=== PATIENT | female | born 1940 | race Caucasian/White ===

== ENCOUNTER → 2017-01-05 | Outpatient (CLI) | payer OTHER ==
[~2017-01-05] MED LIST: ACETAMINOPHEN500 M6 PO; ADVAIR 250-501 EAC1 IH; ADVAIR 250-501 EAC1 INH; ADVAIR 250-501 EACH INH; ADVAIR 2501 DISK W/D PO; ADVAIR DISKU1 250/50 INH; ALENDRONATE SOD70 M1 PO; ALLEGRA; ALLEGRA PO; ALLEGRA180 MG; ALLEGRA180 MG PO; ALLERGY MULTI-1 EACH PO; ALPHAGAN P5 ML OD; ALPHAGAN P5 ML OP; ALPHAGAN P5 ML OS; ALPHAGAN P5 ML OU; AMLODIPINE BESYL5 MG PO; APRESOLINE PO; ASPIRIN81 M1 PO; AZOR 5/40 MG TA1 TAB PO; CAPOZIDE PO; CARAFATE PO; CARDIZEM CD PO; CEFDINIR300 MG PO; CEFTIN PO; CEPHALEXIN500 M1 PO; CIPRO PO; CIPRO250 MG PO; CLEOCIN PO; FEOSOL PO; FERGON240 ( 27 ) PO; FERROUS GL PO; FERROUS GLUCON324 M2 PO; FLAGYL PO; FLORASTOR250 M1 PO; IRON1 TAB PO; K-DUR20 ME1 PO; KCL PO; KEFLEX500 MG PO; LASIX20 MG PO; LIDOCAINE VISCOU1 ML EXT; LISINOPRIL PO; LISINOPRIL10 MG PO; LISINOPRIL20 MG PO; LOMOTIL WHITE2.5 M1 PO; LORTAB 5/500 TA1 TA1 PO; METOPROLOL SUCC50 MG PO; MICRO-K; MICRO-K PO; NORVASC; NORVASC PO; OMEPRAZOLE40 M1 PO; PANTOPRAZOLE SO40 MG PO; POTASSIUM CHLO10 ME1 PO; POTASSIUM CHLO10 MEQ PO; POTASSIUM CL 225 ME1 PO; PREDNISONE; PREDNISONE5 M1 PO; PRILOSEC PO; PRINIVIL10 MG PO; PRINIVIL20 M1 PO; PROTONIX PO; SIMVASTATIN40 MG PO; SINGULAIR; SKELAXIN PO; TOPROL XL; TOPROL XL 50 MG50 MG PO; TOPROL XL PO; TOPROL XL100 MG PO; TOPROL XL200 MG PO; TOPROL XL50 MG PO; VISINE TEARS DR15 ML OP; VITAMIN C PO; VITAMIN C500 M6 PO; VITAMIN D250000 UNIT PO; VITAMIN D50000 UNIT PO; WELCHOL625 MG PO; ZOCOR; ZOCOR PO; ZOFRAN PO
--- NOTE | ~2017-01-05 | MY11 ---
[facility] A Service of [facility] RADIOLOGY TEXT RESULTS PATIENT: MARIO POLK LOCATION: [facility] : 40 UNIT #: [id number] AGE: [address]: Kash Michel MD SEX: F ORDER DR: [id number] [facility] [address] [facility]. [place], [place] [address] [id number] O MR#: [id number] Acc #: [id number] NAME: MARIO POLK : 1940 SEX: F STUDY DATE/TIME: 01/05/2017 12:32 UNIT: [facility] ROOM: STUDY DESCRIPTION: MY Mammogram Screening Dig Kee Attending Physician: Kash Michel M.D. Ordering Physician: Kash Michel M.D. Primary Care Physician: Kash Michel M.D. MEDICAL IMAGING REPORT This report is preliminary unless electronic signature is present EXAM Bilateral digital screening mammogram with CAD 01/05/2017 INDICATIONS 76-year-old female presenting for routine screening. No reported problems. No personal or family history of breast cancer. No surgeries. TECHNIQUE CC and MLO views of the breast were obtained and reviewed with an FDA-approved CAD device. COMPARISON There are no comparison studies. Efforts to obtain prior mammograms have been unsuccessful. This will serve as her new baseline study. FINDINGS Breast parenchyma is composed of scattered fibroglandular densities. The pattern is symmetric. There is no new dominant nodule or mass in either breast. No suspicious cluster of microcalcifications. Benign vascular calcifications are present. IMPRESSION Benign screening mammogram. 1 year followup recommended. Patient's over the age of 40 are entered into a reminder system with target due date for the next mammogram. A result letter will be sent to the patient. BIRADS: 2 Benign findings. Dictated by... Andrey Hodge M.D. [facility] A Service of [facility] RADIOLOGY TEXT RESULTS PATIENT: MARIO POLK LOCATION: [facility] : 40 UNIT #: [id number] AGE: [address]: Kash Michel MD SEX: F ORDER DR: THIS IS AN ELECTRONICALLY VERIFIED REPORT Andrey Hodge M.D. at 01/06/2017 4:51 PM RAO/lisa TD: 01/06/2017 13:20 JOB #: [id number] MEDICAL IMAGING REPORT COPY
== END | disposition home or self-care (01) ==
LOC: CWCC 12:13
DX: Z12.31 Encounter for screening mammogram for malignant neoplasm of breast (principal)
CPT/HCPCS: G0202

== ENCOUNTER 2017-01-16 21:43 | Emergency (ER) | payer OTHER ==
[~2017-01-16 21:43] MED LIST changes: -ADVAIR 250-501 EACH INH; -ALENDRONATE SOD70 M1 PO; -ALLEGRA PO; -ALPHAGAN P5 ML OD; -CARAFATE PO; -FERROUS GLUCON324 M2 PO; -MICRO-K PO; -PREDNISONE; -PRILOSEC PO; -PRINIVIL10 MG PO; -PRINIVIL20 M1 PO; -SINGULAIR; -TOPROL XL 50 MG50 MG PO; -VITAMIN C PO; -VITAMIN C500 M6 PO; -VITAMIN D250000 UNIT PO
[2017-01-25] MEDS ORDERED: LASIX20 MG PO (11:44)
[2017-01-25] MEDS ORDERED: PRILOSEC PO (11:44)
[2017-01-25] MEDS ORDERED: AMLODIPINE BESYL5 MG PO (11:44)
[2017-01-25] MEDS ORDERED: PRINIVIL20 M1 PO (11:45)
[2017-01-25] MEDS ORDERED: IRON1 TAB PO (11:45)
[2017-01-25] MEDS ORDERED: MICRO-K PO (11:46)
[2017-01-25] MEDS ORDERED: ALPHAGAN P5 ML OD (11:46)
[2017-01-25] MEDS ORDERED: ADVAIR 2501 DISK W/D PO (11:46)
[2017-01-25] MEDS ORDERED: VITAMIN D50000 UNIT PO (11:47)
[2017-01-25] MEDS ORDERED: TOPROL XL 50 MG50 MG PO (11:47)
[2017-01-25] MEDS ORDERED: ZOCOR PO (11:47)
[2017-01-25] MEDS ORDERED: ALENDRONATE SOD70 M1 PO (11:48)
[2017-01-25] MEDS ORDERED: VITAMIN C PO (11:48)
[2017-01-25] MEDS ORDERED: CARAFATE PO (11:49)
[2017-03-01] MEDS ORDERED: SINGULAIR (14:29)
[2017-03-01] MEDS ORDERED: PREDNISONE (14:29)
[2017-03-03] MEDS ORDERED: CARAFATE PO (12:01)
[2017-03-03] MEDS ORDERED: LASIX20 MG PO (12:02)
[2017-03-03] MEDS ORDERED: PRILOSEC PO (12:02)
[2017-03-03] MEDS ORDERED: AMLODIPINE BESYL5 MG PO (12:02)
[2017-03-03] MEDS ORDERED: FERROUS GLUCON324 M2 PO (12:03)
[2017-03-03] MEDS ORDERED: ALLEGRA PO (12:03)
[2017-03-03] MEDS ORDERED: PRINIVIL10 MG PO (12:03)
[2017-03-03] MEDS ORDERED: ALPHAGAN P5 ML OU (12:04)
[2017-03-03] MEDS ORDERED: ADVAIR 250-501 EACH INH (12:04)
[2017-03-03] MEDS ORDERED: TOPROL XL PO (12:05)
[2017-03-03] MEDS ORDERED: ZOCOR PO (12:05)
[2017-03-03] MEDS ORDERED: VITAMIN D250000 UNIT PO (12:05)
[2017-03-03] MEDS ORDERED: VITAMIN C500 M6 PO (12:06)
== END 2017-01-16 22:00 | disposition home or self-care (01) ==
LOC: CFTX 21:43
DX: J01.00 Acute maxillary sinusitis, unspecified (principal); N18.9 Chronic kidney disease, unspecified; K21.9 Gastro-esophageal reflux disease without esophagitis; Z90.710 Acquired absence of both cervix and uterus; Z88.0 Allergy status to penicillin; Z88.1 Allergy status to other antibiotic agents; Z88.2 Allergy status to sulfonamides; Z88.8 Allergy status to other drugs, medicaments and biological substances
CPT/HCPCS: 99282

== ENCOUNTER 2017-01-25 12:12 | Emergency (ER) | payer OTHER ==
--- NOTE | ~2017-01-25 | CT113 ---
[facility] A Service of [facility] & [facility] RADIOLOGY TEXT RESULTS PATIENT: MARIO POLK LOCATION: [facility] : 40 UNIT #: [id number] AGE: [address]: Sukhjinder Avitia MD SEX: F ORDER DR: [id number] [address] [address] [id number] E MR#: [id number] Acc #: [id number] NAME: MARIO POLK : 1940 SEX: F STUDY DATE/TIME: 01/25/2017 12:22 UNIT: SED ROOM: STUDY DESCRIPTION: CT Sinuses Wo Contrast Attending Physician: Sukhjinder Avitia M.D. Ordering Physician: Sukhjinder Avitia M.D. Primary Care Physician: Kash Michel M.D. MEDICAL IMAGING REPORT This report is preliminary unless electronic signature is present. EXAM CT sinuses without contrast 01/25/2017 13:17 hours. HISTORY 76-year-old woman with 2-week history of congestion, sinus pressure and cough. The patient was initially evaluated 01/15/2017 at [facility] and given the Zithromax and prednisone without relief. COMPARISON Head CT 01/10/2016. No prior sinus CT. TECHNIQUE Thin cut axial images were obtained through the paranasal sinuses with sagittal and coronal reconstructions. Total exam DLP 234 mGy-cm. This CT exam was performed with one or more of the following radiation dose reduction techniques: automatic exposure control, adjustment of mA and/or kV according to patient size, and iterative reconstruction. FINDINGS The left frontal sinus is larger than the right. The frontal sinuses are clear. The ethmoid air cells demonstrate partial opacification bilaterally. There is a small retention cyst in the posterior inferior left ethmoid sinus. This measures 9 mm. There is an air-fluid level and mucosal thickening in the left maxillary sinus and mild mucosal thickening in the right maxillary sinus along the floor. The sphenoid sinus is clear. There is rightward nasal septal deviation with surgical absence of the inferior turbinates and truncated middle turbinates bilaterally. The maxillary ostia is patent on the right and narrowed on the left. IMPRESSION 1. There is an air-fluid level and mucosal thickening in the left STS. [facility] A Service of [facility] & [facility] RADIOLOGY TEXT RESULTS PATIENT: MARIO POLK LOCATION: [facility] : 40 UNIT #: [id number] AGE: [address]: Sukhjinder Avitia MD SEX: F ORDER DR: maxillary sinus with mild mucosal thickening in the right maxillary sinus. Findings suggest acute sinusitis. 2. There is a minimall callosal thickening. A small retention cyst in the ethmoid sinuses left greater than right. The frontal and sphenoid sinuses are clear. 3. There is rightward nasal septal deviation with surgical absence of the inferior turbinates and truncated bilateral middle turbinates. 4. There is mucosal thickening at the left maxillary ostium narrowing the ostium. There is trace mucosal thickening at the right maxillary ostium. Dictated by... Nancy Anderson M.D. THIS IS AN ELECTRONICALLY VERIFIED REPORT Nancy Anderson M.D. at 01/25/2017 6:54 PM MARGEM/solo TD: 01/25/2017 14:27 JOB #: [id number] MEDICAL IMAGING REPORT Page 1 of 1
--- NOTE | ~2017-01-25 | CR63 ---
[facility] A Service of [facility] & [facility] RADIOLOGY TEXT RESULTS PATIENT: MARIO POLK LOCATION: SED : 40 UNIT #: [id number] AGE: [address]: Sukhjinder Avitia MD SEX: F ORDER DR: [id number] [address] [address] [id number] E MR#: [id number] Acc #: [id number] NAME: MARIO POLK : 1940 SEX: F STUDY DATE/TIME: 01/25/2017 12:21 UNIT: SED ROOM: STUDY DESCRIPTION: CR Chest 2 View Attending Physician: Sukhjinder Avitia M.D. Ordering Physician: Sukhjinder Avitia M.D. Primary Care Physician: Kash Michel M.D. MEDICAL IMAGING REPORT This report is preliminary unless electronic signature is present. EXAM Chest 2 views 01/25/2017 1:11 hours. HISTORY 76-year-old woman complaining of congestion, sinus pressure and cough for 2 weeks. Previously treated after being seen at [facility] 01/15/2017 with Zithromax and prednisone for VRE infection. COMPARISON 07/24/2016. FINDINGS Upright PA and lateral views of the chest demonstrate normal cardiac, mediastinal and hilar contours. There are benign calcified mediastinal nodes with no pathologic adenopathy. The lungs demonstrate a bilateral reticulonodular changes diffusely more confluent in the lower lungs. Patient has had chronic interstitial changes in the lung window images from the lung bases. CT abdomen 11/29/2016 and 07/24/2016 suggesting chronic interstitial lung disease. It is difficult to determine whether an acute processes superimposed, but is not favored. IMPRESSION There are diffuse interstitial changes in both lungs, slightly more confluent than lung bases, with an element of underlying emphysematous change. The patient has had these interstitial changes on the lung window images from CT abdomen and pelvis 07/24/2016 and 11/29/2016, which suggests an element of chronicity and chronic interstitial lung disease. No definite acute superimposed pulmonary densities seen. There is no pleural effusion or pneumothorax. [facility] A Service of [facility] RADIOLOGY TEXT RESULTS PATIENT: MARIO POLK LOCATION: [facility] : 40 UNIT #: [id number] AGE: [address]: Sukhjinder Avitia MD SEX: F ORDER DR: Dictated by... Nancy Anderson M.D. THIS IS AN ELECTRONICALLY VERIFIED REPORT Nancy Anderson M.D. at 01/25/2017 2:27 PM KAMLESH/solo TD: 01/25/2017 14:03 JOB #: [id number] MEDICAL IMAGING REPORT
[~2017-01-25 12:12] MED LIST changes: +ALENDRONATE SOD70 M1 PO; +ALPHAGAN P5 ML OD; +CARAFATE PO; +MICRO-K PO; +PRILOSEC PO; +PRINIVIL20 M1 PO; +TOPROL XL 50 MG50 MG PO; +VITAMIN C PO
[2017-01-25 13:06] LABS: BASOPHIL# 0.1 X10e3 (0-0.3); BASOPHIL% 0.8 % (0-2.5); EOSINOPHIL# 0.2 X10e3 (0-0.7); EOSINOPHIL% 1.1 % (0.0-7.0); HEMATOCRIT 43.7 % (35.0-45.0); HEMOGLOBIN 13.9 gm/dL (12.0-16.0); LYMPHOCYTE# 1.7 X10e3 (1.0-3.5); LYMPHOCYTE% 10.2 % (17.0-45.0); MEAN CELL VOLUME 82.9 FL (83-96); MEAN CORPUSCULAR HEMOGLOBIN 26.4 PG (28-34); MEAN CORPUSCULAR HGB CONC 31.9 g/dL (30-36); MEAN PLATELET VOLUME 7.5 FL (6.5-11.5); MONOCYTE# 1.1 X10e3 (0-1.0); MONOCYTE% 6.5 % (3.0-12.0); NEUTROPHIL# 13.5 X10e3 (1.5-7.1); NEUTROPHIL% 81.4 % (40-75); PLATELET COUNT 391 X10e3 (140-420); RED BLOOD COUNT 5.27 X10e (3.90-5.30); RED CELL DISTRIBUTION WIDTH 15.6 % (11.0-15.5); WHITE BLOOD COUNT 16.6 X10e3 (4.0-10.5)
[2017-01-25 13:12] LABS: DIFF IND NO
[2017-01-25 13:16] LABS: INFLUENZA A NEG (NEG)
[2017-01-25 13:17] LABS: INFLUENZA B NEG (NEG)
[2017-01-25 13:23] LABS: ALBUMIN SERUM 4.1 g/dL (3.5-5.0); ALKALINE PHOSPHATASE 95 U/L (32-92); ALT (SGPT) 14 U/L (10-40); AST (SGOT) 15 U/L (10-42); BILIRUBIN, DIRECT 0.1 mg/dL (0.0-0.2); BILIRUBIN,INDIRECT 0.4 mg/dL (0.0-0.9); BILIRUBIN,TOTAL 0.5 mg/dL (0.2-2.0); BLOOD UREA NITROGEN 12 mg/dL (9-23); CALCIUM SERUM 9.1 mg/dL (8.4-10.2); CARBON DIOXIDE 26 mmol/L (22-31); CHLORIDE 99 mmol/L (100-111); CREATININE SERUM 0.8 mg/dL (0.6-1.4); GLOM FILT RATE Estimated ABOVE60 mL/min (>60); GLUCOSE FASTING 115 mg/dL (70-110); POTASSIUM 3.9 mmol/L (3.5-5.1); PROTEIN TOTAL SERUM 8.4 g/dL (6.0-8.3); SODIUM 132 mmol/L (135-145)
[2017-03-01] MEDS ORDERED: SINGULAIR (14:29)
[2017-03-01] MEDS ORDERED: PREDNISONE (14:29)
[2017-03-03] MEDS ORDERED: CARAFATE PO (12:01)
[2017-03-03] MEDS ORDERED: PRILOSEC PO (12:02)
[2017-03-03] MEDS ORDERED: LASIX20 MG PO (12:02)
[2017-03-03] MEDS ORDERED: AMLODIPINE BESYL5 MG PO (12:02)
[2017-03-03] MEDS ORDERED: ALLEGRA PO (12:03)
[2017-03-03] MEDS ORDERED: PRINIVIL10 MG PO (12:03)
[2017-03-03] MEDS ORDERED: FERROUS GLUCON324 M2 PO (12:03)
[2017-03-03] MEDS ORDERED: ALPHAGAN P5 ML OU (12:04)
[2017-03-03] MEDS ORDERED: ADVAIR 250-501 EACH INH (12:04)
[2017-03-03] MEDS ORDERED: ZOCOR PO (12:05)
[2017-03-03] MEDS ORDERED: VITAMIN D250000 UNIT PO (12:05)
[2017-03-03] MEDS ORDERED: TOPROL XL PO (12:05)
[2017-03-03] MEDS ORDERED: VITAMIN C500 M6 PO (12:06)
== END 2017-01-25 16:02 | disposition home or self-care (01) ==
LOC: SED 12:12
PROVIDERS: Emergency Medicine
DX: J01.00 Acute maxillary sinusitis, unspecified (principal); K21.9 Gastro-esophageal reflux disease without esophagitis; Z90.710 Acquired absence of both cervix and uterus; Z90.49 Acquired absence of other specified parts of digestive tract; Z88.0 Allergy status to penicillin; Z88.2 Allergy status to sulfonamides; Z88.1 Allergy status to other antibiotic agents; Z88.8 Allergy status to other drugs, medicaments and biological substances; Z79.899 Other long term (current) drug therapy
CPT/HCPCS: 36415; 70486; 71020; 80048; 80076; 85025; 86308; 87651; 87804; 99284

== ENCOUNTER 2017-03-01 16:22 | Emergency (ER) | payer OTHER ==
[~2017-03-01 16:22] MED LIST changes: +PREDNISONE; +SINGULAIR
[2017-03-03] MEDS ORDERED: CARAFATE PO (12:01)
[2017-03-03] MEDS ORDERED: PRILOSEC PO (12:02)
[2017-03-03] MEDS ORDERED: LASIX20 MG PO (12:02)
[2017-03-03] MEDS ORDERED: AMLODIPINE BESYL5 MG PO (12:02)
[2017-03-03] MEDS ORDERED: PRINIVIL10 MG PO (12:03)
[2017-03-03] MEDS ORDERED: ALLEGRA PO (12:03)
[2017-03-03] MEDS ORDERED: FERROUS GLUCON324 M2 PO (12:03)
[2017-03-03] MEDS ORDERED: ALPHAGAN P5 ML OU (12:04)
[2017-03-03] MEDS ORDERED: ADVAIR 250-501 EACH INH (12:04)
[2017-03-03] MEDS ORDERED: ZOCOR PO (12:05)
[2017-03-03] MEDS ORDERED: TOPROL XL PO (12:05)
[2017-03-03] MEDS ORDERED: VITAMIN D250000 UNIT PO (12:05)
[2017-03-03] MEDS ORDERED: VITAMIN C500 M6 PO (12:06)
== END 2017-03-01 16:30 | disposition left against medical advice (07) ==
LOC: SED 16:22
DX: Z53.21 Procedure and treatment not carried out due to patient leaving prior to being seen by health care provider (principal)

== ENCOUNTER 2017-03-03 13:01 | Inpatient (IN) | payer OTHER ==
--- NOTE | ~2017-03-03 | CR72 ---
[facility] A Service of [facility] & [facility] RADIOLOGY TEXT RESULTS PATIENT: MARIO POLK LOCATION: [facility] [address] : 40 UNIT #: [id number] AGE: [address]: Kash Michel MD SEX: F ORDER DR: [id number] [facility] [address] [facility]. [place], [place] [address] [id number] E MR#: [id number] Acc #: [id number] NAME: MARIO POLK : 1940 SEX: F STUDY DATE/TIME: 03/03/2017 12:33 UNIT: [facility] ROOM: STUDY DESCRIPTION: CR Chest Single View Portable Attending Physician: Devang Lara M.D. Ordering Physician: Devang Lara M.D. Primary Care Physician: Kash Michel M.D. MEDICAL IMAGING REPORT This report is preliminary unless electronic signature is present EXAM Portable chest 1-view, 03/03/2017 COMPARISON 01/25/2017 HISTORY Short of air with cough and congestion for 1 week. FINDINGS Redemonstrated extensive chronic bilateral interstitial infiltrate, not convincingly significantly changed since the prior study. No dense consolidation, effusion or pneumothorax. Dictated by... Bjorn Fuller M.D. THIS IS AN ELECTRONICALLY VERIFIED REPORT Bjorn Fuller M.D. at 03/04/2017 3:53 PM DEREK/jason TD: 03/03/2017 13:23 JOB #: [id number] MEDICAL IMAGING REPORT Page 1 of 1 COPY
--- NOTE | ~2017-03-03 | OR ---
Unit #: [id number] #: [id number] Patient: MARIO POLK [id number] [address] [address] [id number] I MR#: [id number] NAME: MARIO POLK ROOM: 473 Date of Procedure: 03/04/2017 Admission Date: 03/03/2017 Surgeon: Everette Feldman M.D. : 1940 Attending Physician: Kash Michel M.D. Primary Care Physician: Kash Michel M.D. OPERATIVE REPORT PROCEDURE PERFORMED Esophagogastroduodenoscopy with biopsy. INDICATIONS FOR PROCEDURE The patient with abnormal CT scan showing thickening of the duodenal wall along with right upper quadrant epigastric pain, undergoing evaluation with upper endoscopy. MEDICATIONS Monitored anesthesia. POSTOPERATIVE FINDINGS 1. Duodenal bulb, descending duodenum appears completely normal. This area was viewed with the side-viewing scope also. 2. Gastritis appears chronic, biopsies taken. 3. Hiatal hernia and esophageal ring. No dilation attempted. PLAN We will consider MRI, MRCP for further evaluation of the pancreatic head. DESCRIPTION OF PROCEDURE The patient was explained of the procedure, risks, and benefits along with the risks and benefits of anesthesia. She was brought to the endoscopy room. Propofol anesthesia was given. Bite block was placed. The scope was passed down the mouth and esophagus, stomach, duodenum, and distal duodenum. Findings as described. At this point, I used a side-viewing scope and reviewed the duodenum carefully. No abnormalities were seen in this area. Biopsies were taken in antrum and body. Gently, the scope was pulled out. She tolerated it well. No major complications were seen. Dictated by... Nghia Cardenas/calvin TD: 03/05/2017 00:00 JOB #: [id number] Unit #: [id number] #: [id number] Patient: MARIO POLK OPERATIVE REPORT Page 1 of 1 X Everette Feldman MD PROCEDURE OPERATIVE NOTE
--- NOTE | ~2017-03-03 | CT4 ---
[facility] A Service of [facility] & [facility] RADIOLOGY TEXT RESULTS PATIENT: MARIO POLK LOCATION: [facility] 473-01 : 40 UNIT #: [id number] AGE: [address]: Kash Michel MD SEX: F ORDER DR: [id number] [facility] [address] [facility]. [place], [place] [address] [id number] E MR#: [id number] Acc #: [id number] NAME: MARIO POLK : 1940 SEX: F STUDY DATE/TIME: 03/03/2017 13:24 UNIT: [facility] ROOM: STUDY DESCRIPTION: CT Abd and Pelv Wo Cont Attending Physician: Devang Lara M.D. Ordering Physician: Devang Lara M.D. Primary Care Physician: Kash Michel M.D. MEDICAL IMAGING REPORT This report is preliminary unless electronic signature is present EXAM CT of the abdomen and pelvis without contrast media. HISTORY Chills, right flank pain, and bilateral back pain for 2 days. TECHNIQUE Axial imaging of the abdomen and pelvis was performed without contrast media. This CT exam was performed with one or more of the following radiation dose reduction techniques: automatic exposure control, adjustment of mA and/or kV according to patient size, and iterative reconstruction. FINDINGS Scans through the lung bases show advanced interstitial lung disease. There are multiple somewhat nodular appearing infiltrates which overall appear to be more inflammatory than neoplastic. The largest of these is in the posterior aspect of the right base and is not present previously. Similarly, there is an area of air bronchograms in the posteromedial aspect of the right base which was not present previously. There is coronary atherosclerotic disease. Scans through the liver parenchyma appear normal. Gallbladder is surgically absent. There are edematous changes surrounding the duodenal near the head of the pancreas. The pancreas otherwise has a normal appearance without evidence of significant inflammation. Spleen is of normal size. There are dense vascular calcifications in the splenic hilum. The adrenal glands are not enlarged. There are no stones identified in either kidney. The adrenal glands appear of normal size. There is no hydronephrosis or hydroureter. There are no stones in either ureter. There are vascular calcifications in the broad ligament. The uterus is absent. I do not see any adnexal masses. The appendix in this [facility] A Service of [facility] RADIOLOGY TEXT RESULTS PATIENT: MARIO POLK LOCATION: [facility] 473-01 : 40 UNIT #: [id number] AGE: [address]: Kash Michel MD SEX: F ORDER DR: patient appears normal. There is extensive diverticulosis, particularly in the descending and sigmoid colons. The bladder appears unremarkable. There is grade 1 anterolisthesis of L4 on 5. There is evidence of underlying facet disease. CONCLUSIONS 1. Inflammatory changes around the duodenum, possibly representing duodenitis, possibly related to peptic ulcer disease. This extends to the head and uncinate process of the pancreas, although the pancreas proper does not appear inflamed. Certainly pancreatitis and secondary duodenitis are in the differential. 2. Status post cholecystectomy. 3. No evidence of renal or ureteral calculi. 4. Status post hysterectomy. 5. Diverticulosis, no diverticulitis. 6. Advanced facet disease in the lumbar spine with grade 1 anterolisthesis of L4 on 5. Dictated by... Westley Martinez M.D. THIS IS AN ELECTRONICALLY VERIFIED REPORT Westley Martinez M.D. at 03/05/2017 7:11 AM SALTY/jordan TD: 03/03/2017 15:29 JOB #: [id number] MEDICAL IMAGING REPORT Page 1 of 1 COPY
--- NOTE | ~2017-03-03 | CO ---
Unit #: [id number] #: [id number] Patient: MARIO POLK [id number] [address] [place], [place] [address] [id number] I MR#: [id number] NAME: MARIO POLK ROOM: [facility] Age: 76 Sex: F Admission Date: 03/03/2017 : 1940 Attending Physician: Kash Michel M.D. Primary Care Physician: Kash Michel M.D. Consultation Date: 03/04/2017 CONSULTATION REPORT REASON FOR CONSULTATION Abnormal CT scan. HISTORY OF PRESENTING ILLNESS Ms. Polk is a 76-year-old, female admitted yesterday with complaints of pain, which started in the right back, right upper quadrant area, as well as in the epigastric area. Pain seems to be somewhat better now that she is not eating. She had some low-grade fever and chills, also, at this time. Initial workup included a CT scan, which shows concerning findings and I was consulted. Patient has no (1) dysphagia and no hematemesis. She had a bowel movement yesterday. She has had no blood in the stool. She does have a 20-pound weight loss over the last 6 months or so and has lost appetite also. PAST HISTORY Significant for sarcoidosis, gastritis, gastroesophageal reflux disease, hypertension, and COPD. She is status post cholecystectomy tonsillectomy, and hysterectomy. 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 Never smoked. Never drank. No drug abuse. FAMILY HISTORY Not contributory. ALLERGIES To penicillin, sulfa, quinolones, erythromycin, as well as Lipitor and IV dyes. MEDICATIONS 1. Zocor. 2. Prinivil. 3. Amlodipine. 4. Lasix. 5. Prilosec. 6. Carafate. 7. Advair. PHYSICAL EXAMINATION VITAL SIGNS: Stable. She has been afebrile. GENERAL APPEARANCE: No acute distress. HEENT: Pupils are equal and reactive. NECK: No lymphadenopathy. CHEST: A few scattered rhonchi. Unit #: [id number] #: [id number] Patient: MARIO POLK CARDIOVASCULAR: Regular rate and rhythm. No murmurs. ABDOMEN: Soft, nontender, and nondistended. EXTREMITIES: Without clubbing, cyanosis, or edema. NEUROLOGICAL: Intact. SKIN: Warm and dry. DIAGNOSTIC STUDIES IMAGING: CT scan shows findings of possible inflammation around the duodenum. LABORATORY: White count elevated at 14.8 and hemoglobin 13.4. Chemistries unremarkable. Amylase and lipase normal. Liver function tests were normal. ASSESSMENT AND PLAN 1. Abnormal CT scan with thickening in the duodenum and possible peptic ulcer disease versus duodenitis versus mass. Will need direct visualization with EGD. Further recommendations to follow. 2. History of sarcoidosis. Swelling could also be related to her sarcoidosis in this area. 3. Leukocytosis, currently afebrile. Thank you Dr. Michel for this interesting consult. Will follow along. Dictated by... Nghia Cardenas/katrin TD: 03/04/2017 12:36 JOB #: [id number] CONSULTATION REPORT Page 1 of 1 X Everette Feldman MD X CONSULTATION REPORT
--- NOTE | ~2017-03-03 | DS ---
Unit #: [id number] #: [id number] Patient: MARIO POLK [id number] [address] [place], [place] [address] [id number] I MR#: [id number] NAME: MARIO POLK ROOM: 473 Age: 76 Sex: F Admission Date: 03/03/2017 : 1940 Discharge Date: 03/05/2017 Attending Physician: Kash Michel M.D. Primary Care Physician: Kash Michel M.D. DISCHARGE SUMMARY PRINCIPAL DISCHARGE DIAGNOSES 1. Right flank pain. 2. Gastritis. 3. Hiatal hernia with esophageal ring. 4. Leukocytosis. 5. Hypokalemia. 6. Hypertension. 7. Chronic obstructive pulmonary disease. 8. Hypothyroidism. 9. Sarcoidosis. 10. Recurrent urinary tract infections. 11. Status post cholecystectomy. 12. Status post hysterectomy. 13. Status post tonsillectomy. PROCEDURE EGD with biopsy on March 04, 2017. MARKETING INSTRUCTOR Dr. Feldman from GI services. REASON FOR HOSPITALIZATION The patient is a 76-year-old white female with a history of hypertension, COPD, hypothyroidism, sarcoidosis, GE reflux disease, hyperlipidemia who presented to the emergency room with chills, subjective fever, right flank pain. Found to have a low-grade temperature of 99.7, slightly tachycardic, white count elevated at 14.8. Workup was otherwise essentially negative, except for a CT scan of the abdomen and pelvis showing inflammation around the duodenum. Amylase and lipase were normal. Chest x-ray showed no active disease. Hemoglobin and platelets were normal. Coags normal. Cardiac enzymes normal. Lactic acid normal. Urinalysis: One plus blood, trace leukocytes. CMP normal except for potassium of 3.4 and random blood sugar of 133 with a total protein of 8.4. Magnesium normal. Influenza A and B negative. EKG: Sinus tachycardia, fusion complex, incomplete right bundle branch block and the patient was admitted. HOSPITAL COURSE She was made NPO. Placed on SCDs for DVT prophylaxis, IV fluids, IV proton pump inhibitors. GI was consulted. Blood cultures were apparently sent in the emergency room and no growth at 24 hours. EGD was performed on the showing a completely normal duodenum. There was gastritis which appeared chronic. Biopsies were taken. There was a hiatal hernia with esophageal ring which was not dilated. CEA was normal. MRCP showed Unit #: [id number] #: [id number] Patient: MARIO POLK mild intra and extrahepatic biliary ductal dilatation. No filling defects. Prior cholecystectomy. No pancreatic ductal dilatation. No pancreatic mass. There was some parenchymal scarring in the mid left kidney. The patient's potassium was replaced. Diet was advanced. Dr. Feldman also ordered a CEA-125 and a CA19-9 which have not been reported yet. She is currently tolerating a regular diet and will be discharged home on a healthy heart diet and her current meds. MEDICATIONS 1. Advair 250/50 one puff q.12. 2. Nirali 180 mg daily. 3. Amlodipine 5 mg daily. 4. Toprol XL 50 mg daily. 5. Lasix 20 mg daily. 6. Zocor 40 mg daily. 7. Prinivil will be on hold because of possible angioedema of the duodenum as the culprit. 8. She is also on ferrous gluconate one daily. 9. Alphagan P eye drops both eyes b.i.d. 10. Carafate 1 g b.i.d. 11. Prilosec 40 mg daily. 12. Vitamin C 500 mg daily. 13. Vitamin D2 at 50,000 units weekly. FOLLOWUP 1. She will see me in one week. 2. She will see Dr. Feldman in six weeks. Dictated by... Kash Michel M.D. MARITA/casey TD: 03/08/2017 09:22 JOB #: [id number] DISCHARGE SUMMARY Page 1 of 1 X Kash Michel MD X DISCHARGE SUMMARY
--- NOTE | ~2017-03-03 | EKG ---
PATIENT: MARIO POLK UNIT #: [id number] Ventricular Rate: 122 BPM Atrial Rate: 122 BPM P-R Interval: 130 ms QRS Duration: 108 ms Q-T Interval: 332 ms QTC Calculation(Bezet): 473 ms P Mulberry: 62 degrees Calculated R Mulberry: 58 degrees Calculated T Mulberry: 28 degrees Diagnosis Line: Sinus tachycardia with Fusion complexes Diagnosis Line: Incomplete right bundle branch block Diagnosis Line: Nonspecific ST abnormality Diagnosis Line: Abnormal ECG Diagnosis Line: When compared with ECG of 09-DEC-2016 13:28, Diagnosis Line: Fusion complexes are now Present Diagnosis Line: Incomplete right bundle branch block is now Diagnosis Line: Present Diagnosis Line: ST now depressed in Anterior leads Diagnosis Line: Confirmed by AUGUSTO RAMSEY MD ([id number]) on 03/03/2017 Diagnosis Line: 10:45:09 PM INTERPRETING MD: ROXY NEGRON
--- NOTE | ~2017-03-03 | HP ---
Unit #: [id number] #: [id number] Patient: MARIO POLK [id number] [address] [place], [place] [address] [id number] I MR#: [id number] NAME: MARIO POLK ROOM: 473 Age: 76 Sex: F Admission Date: 03/03/2017 : 1940 Attending Physician: Kash Michel M.D. Primary Care Physician: Kash Michel M.D. HISTORY AND PHYSICAL HISTORY OF PRESENT ILLNESS The patient is a 76-year-old white female with a history of hypertension, chronic obstructive pulmonary disease, hypothyroidism, sarcoid, gastroesophageal reflux disease and hyperlipidemia. The patient presented to the emergency room with chills and right flank pain. She had a low-grade temperature of 99.7. She was slightly tachycardic. White count was elevated at 14.8. Workup was essentially negative except for the CT scan showing inflammation around the duodenum. Amylase and lipase were normal. The patient was felt to be needing to be admitted by the emergency room physician because of duodenitis and sinus tachycardia. The sinus tachycardia has resolved spontaneously after giving her Toprol and some IV fluids. She currently has no complaints whatsoever. Hopefully she will have an EGD today. PAST MEDICAL HISTORY 1. Sarcoidosis. 2. Gastritis. 3. Hiatal hernia. 4. Gastroesophageal reflux disease. 5. Recurrent urinary tract infections. 6. Hyperlipidemia. 7. Hypertension. 8. Chronic obstructive pulmonary disease. PAST SURGICAL HISTORY 1. Cholecystectomy. 2. Hysterectomy. 3. Tonsillectomy. SOCIAL HISTORY Prior smoker. Nondrinker. No street drug use. FAMILY HISTORY Noncontributory. ALLERGIES She has stated allergy to penicillin, sulfa drugs, quinolones, erythromycin, Lipitor and IV dye. PREADMISSION MEDICATIONS 1. Nirali 180 mg daily. 2. Ferrous gluconate 324 mg daily. 3. Alphagan P 1 drop o.u. b.i.d. 4. Advair 250/50 one puff q.12 h. Unit #: [id number] #: [id number] Patient: MARIO POLK 5. Toprol XL 50 mg daily. 6. Carafate 1 g b.i.d. 7. Prilosec 40 mg daily. 8. Lasix 20 mg daily. 9. Amlodipine 5 mg daily. 10. Prinivil 10 mg daily. 11. Zocor 40 mg daily. 12. Vitamin D2 50,000 units weekly. 13. Vitamin C 500 mg daily. PHYSICAL EXAMINATION GENERAL: Awake, alert and oriented times three, in no acute distress. VITALS: Afebrile, currently temperature 98.3, pulse 93, respiratory rate 20, blood pressure 131/64, O2 saturations not repeated, but was 99% in the emergency room on room air. HEENT: Unremarkable. NECK: Supple without jugular venous distension, bruits, adenopathy or thyromegaly. CHEST: Clear to auscultation. HEART: Regular rate and rhythm without murmurs, rubs or gallops. ABDOMEN: Soft, nondistended, nontender with positive bowel sounds and no hepatosplenomegaly. EXTREMITIES: No clubbing, cyanosis or edema. /RECTAL: Deferred. NEUROLOGIC: Grossly intact. DIAGNOSTIC STUDIES IMAGING: Chest x-ray single view no active disease. CT abdomen and pelvis inflammatory changes around the duodenum. Status post cholecystectomy. Status post hysterectomy. Diverticulosis. Lumbar spinal facet arthropathy. LABORATORY: White blood cell count 14.8 with a left shift, hemoglobin and platelets normal. PT/PTT normal. Cardiac enzymes normal. Lactic acid normal times two sets. Urinalysis trace leukocytes, 1+ blood. CMP normal except for potassium of 3.4, random blood sugar 133, total protein 8.4. Amylase, lipase and magnesium normal. Influenza A and B swabs were negative. CARDIOVASCULAR: EKG sinus tachycardia, fusion complexes, incomplete right bundle branch block, nonspecific ST abnormality. ASSESSMENT 1. Duodenitis. 2. Leukocytosis. 3. Hypokalemia. 4. Hypertension. 5. Chronic obstructive pulmonary disease. 6. Hypothyroidism. 7. Sarcoidosis. 8. Gastroesophageal reflux disease. 9. Recurrent urinary tract infections. 10. Status post cholecystectomy. 11. Status post hysterectomy. 12. Status post tonsillectomy. PLAN Unit #: [id number] #: [id number] Patient: MARIO POLK PATREENA N.p.o. IV proton pump inhibitor. EGD. SCDs for DVT prophylaxis. Further evaluation pending results of the above. Dictated by Kash Michel M.D. WRK/gz TD: 03/04/2017 07:38 JOB #: [id number] HISTORY AND PHYSICAL Page 1 of 1 X Kash Michel MD HISTORY AND PHYSICAL
--- NOTE | ~2017-03-03 | MR145 ---
[facility] A Service of [facility] RADIOLOGY TEXT RESULTS PATIENT: MARIO POLK LOCATION: [facility] 473-01 : 40 UNIT #: [id number] AGE: [address]: Kash Michel MD SEX: F ORDER DR: [id number] [facility] [address] [facility]. [place], [place] [address] [id number] I MR#: [id number] Acc #: [id number] NAME: MARIO POLK : 1940 SEX: F STUDY DATE/TIME: 03/04/2017 18:45 UNIT: [facility] ROOM: [facility] STUDY DESCRIPTION: MR MRCP WWo Contrast Attending Physician: Kash Michel M.D. Ordering Physician: Everette Feldman M.D. Primary Care Physician: Kash Michel M.D. MRI CENTER REPORT This report is preliminary unless electronic signature is present. EXAM MRI abdomen without and with IV gadolinium and MRCP. HISTORY Fever and chills, and right flank pain and back pain for 2 days. Vomiting. FINDINGS MRI abdomen was performed without and with IV gadolinium and MRCP was performed. The examination is limited by patient's respiratory motion artifact despite repetition of multiple series. Mild intra- and extrahepatic biliary ductal dilatation. No intraductal filling defects are identified. Cholecystectomy. No hepatic mass is identified. Postop changes at the EG junction. Parenchymal scarring in the mid left kidney. No hydronephrosis. No pancreatic abnormalities identified, although, sensitivity is limited by the respiratory motion artifact. No pancreatic ductal dilatation. Probably incidental synovial cyst at the left outlet foramen at T10-11. IMPRESSION 1. Mild intra and extrahepatic biliary ductal dilation. No intraductal filling defects are identified, but sensitivity is limited by respiratory motion artifact degrading multiple series. 2. Cholecystectomy. 3. No pancreatic ductal dilatation. 4. No pancreatic mass is identified, but sensitivity is also limited by motion. 5. Parenchymal scarring in the mid-left kidney. Dictated by... [facility] A Service of [facility] RADIOLOGY TEXT RESULTS PATIENT: MARIO POLK LOCATION: [facility] 473- : 40 UNIT #: [id number] AGE: [address]: Kash Michel MD SEX: F ORDER DR: Alek Wolf M.D. THIS IS AN ELECTRONICALLY VERIFIED REPORT Alek Wolf M.D. at 03/05/2017 11:15 PM KO/jessie TD: 03/04/2017 21:02 JOB #: [id number] MRI CENTER REPORT Page 1 of 1 COPY
[2017-03-03 12:35] LABS: URINE SOURCE CLEAN CATCH
[2017-03-03 12:41] LABS: BASOPHIL# 0.1 X10e3 (0-0.3); BASOPHIL% 0.4 % (0-2.5); EOSINOPHIL# 0.1 X10e3 (0-0.7); EOSINOPHIL% 0.5 % (0.0-7.0); HEMATOCRIT 41.6 % (35.0-45.0); HEMOGLOBIN 13.4 gm/dL (12.0-16.0); LYMPHOCYTE# 1.4 X10e3 (1.0-3.5); LYMPHOCYTE% 9.2 % (17.0-45.0); MEAN CELL VOLUME 82.9 FL (83-96); MEAN CORPUSCULAR HEMOGLOBIN 26.7 PG (28-34); MEAN CORPUSCULAR HGB CONC 32.2 g/dL (30-36); MEAN PLATELET VOLUME 7.3 FL (6.5-11.5); MONOCYTE# 1.2 X10e3 (0-1.0); NEUTROPHIL# 12.1 X10e3 (1.5-7.1); NEUTROPHIL% 81.9 % (40-75); PLATELET COUNT 345 X10e3 (140-420); RED BLOOD COUNT 5.02 X10e (3.90-5.30); RED CELL DISTRIBUTION WIDTH 16.1 % (11.0-15.5); WHITE BLOOD COUNT 14.8 X10e3 (4.0-10.5)
[2017-03-03 12:51] LABS: DIFF IND NO
[2017-03-03 12:52] LABS: URINE BILIRUBIN NEG (NEG); URINE BLOOD 1+ (NEG); URINE COLOR YELLOW; URINE GLUCOSE NEG (NEG); URINE KETONE TRACE (NEG); URINE LEUKOCYTE ESTERASE TRACE (NEG); URINE NITRATE NEG (NEG); URINE PH 5.5 (5-8); URINE PROTEIN NEG (NEG); URINE SPECIFIC GRAVITY 1.013 (1.003-1.035); URINE UROBILINOGEN 0.2 MG/DL (NEG)
[2017-03-03 12:55] LABS: PARTIAL THROMBOPLASTIN TIME 28.2 SECONDS (23.5-31.3); PROTHROMBIN TIME (PATIENT) 10.2 SECONDS (9.6-11.5)
[2017-03-03 12:56] LABS: URBCS1 AUWI 0-2 /[HPF] (0-2); URINE BACTERIA AUWI NEG (NEGATIVE); URINE SQUAMOUS EPITHELIAL CELL NONE SEEN /[HPF]; UWBCS1 AUWI 0-2 (0-5)
[2017-03-03 12:58] LABS: POC - TROPONIN <0.05 ng/mL (<=0.05)
[~2017-03-03 13:01] MED LIST changes: +ADVAIR 250-501 EACH INH; +ALLEGRA PO; +FERROUS GLUCON324 M2 PO; +PRINIVIL10 MG PO; +VITAMIN C500 M6 PO; +VITAMIN D250000 UNIT PO
[2017-03-03 13:06] LABS: CULTURE INDICATED? NO; URINE APPEARANCE CLEAR
[2017-03-03 13:08] LABS: ALBUMIN SERUM 4.2 g/dL (3.5-5.0); BILIRUBIN, DIRECT 0.1 mg/dL (0.0-0.2); BILIRUBIN,INDIRECT 0.4 mg/dL (0.0-0.9); BILIRUBIN,TOTAL 0.5 mg/dL (0.2-2.0); BUN/CREATININE RATIO 21.25; CALCIUM SERUM 9.5 mg/dL (8.4-10.2); CREATININE SERUM 0.8 mg/dL (0.6-1.4); GLOM FILT RATE Estimated 71.7 mL/min (>60); MAGNESIUM 1.9 mg/dL (1.6-3.0); PHOSPHOROUS 2.6 mg/dL (2.5-4.6); POTASSIUM 3.4 mmol/L (3.5-5.1); PROTEIN TOTAL SERUM 8.4 g/dL (6.0-8.3)
[2017-03-03 14:48] LABS: INFLUENZA A NEG (NEG); INFLUENZA B NEG (NEG)
[2017-03-05 03:45] LABS: BASOPHIL# 0.1 X10e3 (0-0.3); BASOPHIL% 0.8 % (0-2.5); EOSINOPHIL# 0.2 X10e3 (0-0.7); EOSINOPHIL% 2.4 % (0.0-7.0); HEMATOCRIT 36.1 % (35.0-45.0); HEMOGLOBIN 11.7 gm/dL (12.0-16.0); LYMPHOCYTE# 1.6 X10e3 (1.0-3.5); LYMPHOCYTE% 17.5 % (17.0-45.0); MEAN CELL VOLUME 83.6 FL (83-96); MEAN CORPUSCULAR HEMOGLOBIN 27.1 PG (28-34); MEAN CORPUSCULAR HGB CONC 32.4 g/dL (30-36); MEAN PLATELET VOLUME 7.9 FL (6.5-11.5); MONOCYTE# 0.7 X10e3 (0-1.0); MONOCYTE% 7.6 % (3.0-12.0); NEUTROPHIL# 6.5 X10e3 (1.5-7.1); NEUTROPHIL% 71.7 % (40-75); PLATELET COUNT 325 X10e3 (140-420); RED BLOOD COUNT 4.32 X10e (3.90-5.30); WHITE BLOOD COUNT 9.1 X10e3 (4.0-10.5)
[2017-03-05 03:47] LABS: DIFF IND NO
[2017-03-05 04:14] LABS: ALBUMIN SERUM 3.1 g/dL (3.5-5.0); BILIRUBIN,TOTAL 0.6 mg/dL (0.2-2.0); BUN/CREATININE RATIO 11.66; CALCIUM SERUM 8.1 mg/dL (8.4-10.2); CREATININE SERUM 0.6 mg/dL (0.6-1.4); GLOM FILT RATE Estimated 88.5 mL/min (>60); POTASSIUM 3.2 mmol/L (3.5-5.1); PROTEIN TOTAL SERUM 6.6 g/dL (6.0-8.3)
[2017-03-08 05:36] LABS: CA 19-9 41 U/mL (<34); CA125 21 U/mL (<35)
== END 2017-03-05 18:52 | disposition home or self-care (01) | DRG 392 ==
LOC: CED 13:01 → CEDOF 15:00 → C4C 19:15
PROVIDERS: Emergency Medicine; Internal Medicine
PROC: 0DB68ZX Excision of Stomach, Via Natural or Artificial Opening Endoscopic, Diagnostic (ICD-10-PCS; principal; 2017-03-04 12:02)
PROC: 0DB78ZX Excision of Stomach, Pylorus, Via Natural or Artificial Opening Endoscopic, Diagnostic (ICD-10-PCS; 2017-03-04 12:02)
DX: K29.50 Unspecified chronic gastritis without bleeding (principal); J44.9 Chronic obstructive pulmonary disease, unspecified; K44.9 Diaphragmatic hernia without obstruction or gangrene; R10.9 Unspecified abdominal pain; E87.6 Hypokalemia; I10 Essential (primary) hypertension; E03.9 Hypothyroidism, unspecified; D86.9 Sarcoidosis, unspecified; Z87.440 Personal history of urinary (tract) infections; Z90.49 Acquired absence of other specified parts of digestive tract; Z90.710 Acquired absence of both cervix and uterus; K21.9 Gastro-esophageal reflux disease without esophagitis; E78.5 Hyperlipidemia, unspecified; Z88.0 Allergy status to penicillin; Z88.2 Allergy status to sulfonamides; Z88.8 Allergy status to other drugs, medicaments and biological substances; Z88.1 Allergy status to other antibiotic agents; Z91.041 Radiographic dye allergy status
CPT/HCPCS: 36415; 71010; 74176; 74183; 80048; 80053; 80076; 81003; 82150; 82378; 82553; 82947; 83605; 83690; 83735; 84100; 84132; 84484; 85025; 85610; 85730; 86301; 86304; 87040; 87804; 88305; 88312; 93005; 96360; 96361; 99285; A9577; C9113; J0696; J2060

== ENCOUNTER 2017-07-12 01:59 | Emergency (ER) | payer OTHER ==
[~2017-07-12] VITALS: Ht 162.6 cm; Wt 57.1 kg
--- NOTE | ~2017-07-12 | CR72 ---
[facility] A Service of [facility] RADIOLOGY TEXT RESULTS PATIENT: MARIO POLK LOCATION: [facility] : 40 UNIT #: [id number] AGE: [address]: Terence Taylor MD SEX: F ORDER DR: [id number] [facility] [address] [place], [place] [address] [id number] MR#: [id number] Acc #: [id number] NAME: MARIO POLK : 1940 SEX: F STUDY DATE/TIME: 07/12/2017 3:17 UNIT: [facility] ROOM: STUDY DESCRIPTION: CR Chest Single View Portable Attending Physician: Terence Taylor M.D. Ordering Physician: Terence Taylor M.D. Primary Care Physician: Kash Michel M.D. MEDICAL IMAGING REPORT This report is preliminary unless electronic signature is present EXAM Portable chest INDICATION Chest pain, shortness of air for the past 2 days. PROCEDURE Frontal view of the chest COMPARISON 03/03/2017 FINDINGS Heart size is stable. Chronic interstitial coarsening is unchanged. No new dense consolidation. No visible pleural fluid or pneumothorax. IMPRESSION 1. No active process. 2. Diffuse interstitial coarsening is stable. Dictated by... Jatin Marie M.D. THIS IS AN ELECTRONICALLY VERIFIED REPORT Jatin Marie M.D. at 07/12/2017 10:07 PM Cooper TD: 07/12/2017 08:34 JOB #: [id number] MEDICAL IMAGING REPORT Page 1 of 1 COPY
[2017-07-12 02:52] LABS: URINE SOURCE CLEAN CATCH
[2017-07-12 02:58] LABS: BASOPHIL# 0.1 X10e3 (0-0.3); EOSINOPHIL# 0.3 X10e3 (0-0.7); EOSINOPHIL% 3.2 % (0.0-7.0); HEMATOCRIT 43.1 % (35.0-45.0); HEMOGLOBIN 14.1 gm/dL (12.0-16.0); LYMPHOCYTE# 1.7 X10e3 (1.0-3.5); LYMPHOCYTE% 21.8 % (17.0-45.0); MEAN CELL VOLUME 81.6 FL (83-96); MEAN CORPUSCULAR HEMOGLOBIN 26.6 PG (28-34); MEAN CORPUSCULAR HGB CONC 32.6 g/dL (30-36); MONOCYTE# 0.7 X10e3 (0-1.0); MONOCYTE% 8.7 % (3.0-12.0); NEUTROPHIL# 5.2 X10e3 (1.5-7.1); NEUTROPHIL% 65.3 % (40-75); PLATELET COUNT 381 X10e3 (140-420); RED BLOOD COUNT 5.28 X10e (3.90-5.30); RED CELL DISTRIBUTION WIDTH 15.6 % (11.0-15.5); WHITE BLOOD COUNT 7.9 X10e3 (4.0-10.5)
[2017-07-12 02:59] LABS: URINE APPEARANCE CLEAR; URINE BILIRUBIN NEG (NEG); URINE BLOOD TRACE (NEG); URINE COLOR YELLOW; URINE GLUCOSE NEG (NEG); URINE KETONE NEG (NEG); URINE LEUKOCYTE ESTERASE NEG (NEG); URINE NITRATE NEG (NEG); URINE PH 6.5 (5-8); URINE PROTEIN NEG (NEG); URINE SPECIFIC GRAVITY 1.009 (1.003-1.035); URINE UROBILINOGEN 0.2 MG/DL (NEG)
[2017-07-12 03:01] LABS: DIFF IND NO
[2017-07-12 03:02] LABS: CULTURE INDICATED? NO; URBCS1 AUWI 0-2 /[HPF] (0-2); URINE BACTERIA AUWI NEG (NEGATIVE); URINE SQUAMOUS EPITHELIAL CELL NONE SEEN /[HPF]; UWBCS1 AUWI 0-2 (0-5)
[2017-07-12 03:24] LABS: ALBUMIN SERUM 4.4 g/dL (3.5-5.0); ALKALINE PHOSPHATASE 71 U/L (32-92); ALT (SGPT) 13 U/L (10-40); AST (SGOT) 19 U/L (10-42); BILIRUBIN, DIRECT <0.1 mg/dL (0.0-0.2); BILIRUBIN,INDIRECT 0.1 mg/dL (0.0-0.9); BILIRUBIN,TOTAL 0.2 mg/dL (0.2-2.0); BLOOD UREA NITROGEN 12 mg/dL (9-23); CARBON DIOXIDE 26 mmol/L (22-31); CHLORIDE 102 mmol/L (100-111); CREATININE SERUM 0.8 mg/dL (0.6-1.4); GLOM FILT RATE Estimated 71.7 mL/min (>60); GLUCOSE FASTING 111 mg/dL (70-110); LIPASE 20 U/L (22-51); POTASSIUM 3.5 mmol/L (3.5-5.1); PROTEIN TOTAL SERUM 8.8 g/dL (6.0-8.3); SODIUM 139 mmol/L (135-145)
== END 2017-07-12 04:00 | disposition home or self-care (01) ==
LOC: CED 01:59
PROVIDERS: Emergency Medicine
DX: J06.9 Acute upper respiratory infection, unspecified (principal); R10.13 Epigastric pain; I10 Essential (primary) hypertension; J44.9 Chronic obstructive pulmonary disease, unspecified; D86.9 Sarcoidosis, unspecified; K44.9 Diaphragmatic hernia without obstruction or gangrene; Z90.49 Acquired absence of other specified parts of digestive tract; Z90.710 Acquired absence of both cervix and uterus; Z88.0 Allergy status to penicillin; Z88.2 Allergy status to sulfonamides; Z88.8 Allergy status to other drugs, medicaments and biological substances; Z88.1 Allergy status to other antibiotic agents; Z91.041 Radiographic dye allergy status; Z79.899 Other long term (current) drug therapy
CPT/HCPCS: 36415; 71010; 80048; 80076; 81003; 83690; 85025; 99284